=== PATIENT | male | born 1980 | race Caucasian/White ===

== ENCOUNTER 2016-06-06 18:03 | Emergency (ER) | payer OTHER ==
[~2016-06-06] VITALS: Ht 188 cm; Wt 90.7 kg
[2016-06-06] MEDS ORDERED: IV NS 0.9% 1,000 ML BAG IV ONE (18:30)
[2016-06-06 18:48] LABS: BASOPHILS # (AUTO) 0.1 /CMM (0.0-0.2); BASOPHILS % (AUTO) 1.4 % (0.0-2.0); DIFF TOTAL % 100 %; EOSINOPHILS % (AUTO) 0.1 % (0.0-6.0); HEMATOCRIT 44 % (39-51); HEMOGLOBIN 14.5 g/dL (13.5-17.5); LYMPHOCYTES # (AUTO) 0.7 /CMM (0.8-4.8); LYMPHOCYTES % (AUTO) 7.1 % (20.0-44.0); MEAN CORPUSCULAR HEMOGLOBIN 28 PG (26.0-33.0); MEAN CORPUSCULAR HGB CONC 33 g/dl (31.0-36.0); MEAN CORPUSCULAR VOLUME 85 fL (80-96); MONOCYTES # (AUTO) 0.6 /CMM (0.1-1.30); MONOCYTES % (AUTO) 5.5 % (2.0-12.0); NEUTROPHILS # (AUTO) 8.9 /CMM (1.8-8.9); NEUTROPHILS % (AUTO) 85.9 % (43.0-81.0); PLATELET COUNT (AUTO) 174 /CMM (150-450); RED BLOOD CELL COUNT(AUTO) 5.11 MIL/uL (4.5-6.0); WHITE BLOOD COUNT (AUTO) 10.3 K/uL (4.3-11.0)
[2016-06-06 18:55] LABS: ANION GAP 13 (5-14); CALCIUM, SERUM 8.4 mg/dL (8.5-10.1); CARBON DIOXIDE 25 mmol/L (21-32); CHLORIDE 98 mmol/L (98-107); CREATININE 1.3 mg/dL (0.6-1.3); GFR 63 mL/min (>60); GLUCOSE 165 mg/dL (74-106); POTASSIUM 3.7 mmol/L (3.5-5.1); SODIUM SERUM 132 mmol/L (136-145); UREA NITROGEN, BLOOD 9 mg/dL (7-18)
[2016-06-06] MEDS ORDERED: ACETAMINOPHEN ES 500 MG TABLET PO ONE (19:00)
[2016-06-06 19:05] LABS: TROPONIN I < 0.017 ng/mL (0.00-0.056)
[2016-06-06] MEDS ORDERED: IV NS 0.9% 2,000 ML ONE (19:16)
[2016-06-06] MEDS ORDERED: ACETAMINOPHEN ES 500 MG TABLET ONE (19:16)
[2016-06-06] MEDS ORDERED: IV SET PRIMARY 1 EA INFUS.SET MC ONE (19:16)
[2016-06-06 20:14] VITALS: BP 127/58
== END 2016-06-06 21:39 | disposition home or self-care (01) ==
LOC: ER 18:05
DX: B34.9 Viral infection, unspecified (principal); F17.200 Nicotine dependence, unspecified, uncomplicated; F15.90 Other stimulant use, unspecified, uncomplicated; Z88.6 Allergy status to analgesic agent
CPT/HCPCS: 36415; 80048-TC; 84484-TC; 85025-TC; 87400; A4606; J7030; Z7610

== ENCOUNTER 2016-06-07 06:56 | Emergency (ER) | payer OTHER | END 2016-06-07 07:05 | disposition left against medical advice (07) | LOC: ER 06:57 | DX: Z53.21 Procedure and treatment not carried out due to patient leaving prior to being seen by health care provider (principal) ==

== ENCOUNTER 2021-01-06 10:21 | Emergency (ER) | payer OTHER ==
[~2021-01-06] VITALS: Ht 193 cm; Wt 158.8 kg
--- NOTE | 2021-01-06 10:34 | NUR ---
PT VLAD FROM A BUS STOP TO ED BED 12. PT STATES HES BEEN WEAK AND BEEN FEELING FAINT FOR THE PAST COUPLE OF DAYS SINCE HIS CAR BROKE. PARAMEDICS ENDORSED METH USE. STABLE VITALS. AWAITING MD DOE.
--- NOTE | 2021-01-06 10:36 | NUR ---
DR MEAD AT BEDSIDE FOR EVAL.
--- NOTE | 2021-01-06 10:50 | NUR ---
CREDIT OR LOANS OFFICER BEDSIDE FOR BLOOD DRAW.
[2021-01-06 10:58] LABS: BASOPHILS # (AUTO) 0.1 K/uL (0.0-0.2); BASOPHILS % (AUTO) 0.7 % (0.0-2.0); EOSINOPHILS % (AUTO) 0.8 % (0.0-6.0); HEMATOCRIT 45 % (39-51); HEMOGLOBIN 14.7 g/dL (13.5-17.5); LYMPHOCYTES # (AUTO) 1.4 K/uL (0.8-4.8); LYMPHOCYTES % (AUTO) 11.5 % (20.0-44.0); MEAN CORPUSCULAR HGB CONC 33 g/dl (31.0-36.0); MEAN CORPUSCULAR VOLUME 86 fL (80-96); MONOCYTES # (AUTO) 0.7 K/uL (0.1-1.30); MONOCYTES % (AUTO) 5.6 % (2.0-12.0); NEUTROPHILS # (AUTO) 9.8 K/uL (1.8-8.9); NEUTROPHILS % (AUTO) 81.4 % (43.0-81.0); PLATELET COUNT (AUTO) 217 K/uL (150-450); RED BLOOD CELL COUNT(AUTO) 5.29 MIL/uL (4.5-6.0); WHITE BLOOD COUNT (AUTO) 12.1 K/uL (4.3-11.0)
[2021-01-06 11:08] LABS: CARBON DIOXIDE 27 mmol/L (21-32); CHLORIDE 99 mmol/L (98-107); CREATININE 1.4 mg/dL (0.6-1.3); GLUCOSE 243 mg/dL (74-106); POTASSIUM 3.3 mmol/L (3.5-5.1); SODIUM SERUM 136 mmol/L (136-145); UREA NITROGEN, BLOOD 22 mg/dL (7-18)
--- NOTE | 2021-01-06 11:11 | NUR ---
EDIN meade at bedside talkinig to patient.
--- NOTE | 2021-01-06 11:11 | NUR ---
Appraisal Coordinator Consultation: Appraisal Coordinator consultation requested by Dr. Lugo. Per ED physicians notes, patient was brought in to the ED by paramedics stating I keep on passing out. Per ED physicians notes, patients car had broken down a couple of days ago, and he was living in his car during that time and using methamphetamines. This PUBLIC RELATIONS met with the patient bedside in the ED. Patient is a 40 year old male, awake, alert, receptive to meeting with this PUBLIC RELATIONS. Patient states he lives in [place] ([address], [place] [id number]). Patient stated he was visiting his father in the area, and that his car broke down on his drive back home. Patient stated he was living in his car for a couple of days because his friends and family who he couldve called for help were on vacation. Patient stated he kept on passing out during this time, but was not sure why. This PUBLIC RELATIONS asked patient about his substance abuse history and patient reported that he does use some drugs, but stated I prefer not to disclose that information. This PUBLIC RELATIONS assessed for psychosocial needs, and patient stated that he did not have any needs at this time. Patient has [employer] insurance, and stated he works in a [employer]. Discharge plans discussed, and patient stated that he will call a friend to pick him up from the ED, once he is medically cleared. No further SS interventions needed at this time. This PUBLIC RELATIONS informed Dr. Lugo and OSMIN Carr about above.
[2021-01-06 11:13] LABS: ALANINE AMINOTRANSFERASE 69 U/L (12-78); ALBUMIN 3.1 g/dL (3.4-5.0); ALCOHOL, BLOOD < 3 mg/dL (0-0); ALKALINE PHOSPHATASE 74 U/L (46-116); ASPARTATE AMINOTRANSFERASE 37 U/L (15-37); BILIRUBIN,DIRECT 0.1 mg/dL (0.0-0.2); BILIRUBIN,TOTAL 0.5 mg/dL (0.2-1.0); TOTAL PROTEIN, SERUM 7.2 g/dL (6.4-8.2)
[2021-01-06 11:14] LABS: ACETAMINOPHEN 0 ug/ml (10-30)
--- NOTE | 2021-01-06 11:15 | NUR ---
URINE COLLECTED AND SENT TO LAB.
[2021-01-06 11:31] LABS: BILIRUBIN,URINE Negative (NEGATIVE); COLOR,URINE YELLOW (YELLOW); LEUKOCYTE ESTERASE ,URINE Negative (NEGATIVE); NITRITE, URINE Negative (NEGATIVE); PROTEIN,URINE Trace mg/dl (NEGATIVE); UGLUCOSE 500 MG/DL mg/dL (NEGATIVE)
[2021-01-06 11:32] LABS: BACTERIA,URINE None seen /HPF (None Seen); SQUAMOUS EPITHELIAL CELL,UR None Seen /HPF (None Seen); WBC,URINE 0-2 /HPF (0-3)
--- NOTE | 2021-01-06 12:35 | NUR ---
PT PROVIDED W. MEAL TRAY.
--- NOTE | 2021-01-06 13:38 | NUR ---
Patient discharged to home in stable condition. Written and verbal after care instructions given. Patient verbalizes understanding of instruction.IV removed. Catheter intact and site benign. Pressure and 4x4 applied to site. No bleeding noted.
[2021-01-06 13:40] VITALS: BP 132/81
== END 2021-01-06 13:40 | disposition home or self-care (01) ==
LOC: ER 11:34
DX: F19.10 Other psychoactive substance abuse, uncomplicated (principal); R55 Syncope and collapse; F17.200 Nicotine dependence, unspecified, uncomplicated; Z88.6 Allergy status to analgesic agent
CPT/HCPCS: 36415; 80048-TC; 80076-TC; 81001; 85025-TC; G0480